=== PATIENT | male | born 1955 | race Caucasian/White ===

== ENCOUNTER → 2016-07-04 | Outpatient (CLI) | payer BC | LOC: MW.LAB 15:34 | PROVIDERS: ATTEND Internal Medicine | DX: Z51.81 Encounter for therapeutic drug level monitoring (principal); Z79.01 Long term (current) use of anticoagulants | CPT/HCPCS: 36415; 85610 ==

== ENCOUNTER → 2016-08-01 | Outpatient (CLI) | payer BC | END | disposition home or self-care (01) | LOC: MW.LAB 15:42 | PROVIDERS: ATTEND Internal Medicine | DX: Z51.81 Encounter for therapeutic drug level monitoring (principal); Z79.01 Long term (current) use of anticoagulants | CPT/HCPCS: 36415; 85610 ==

== ENCOUNTER → 2016-09-02 | Outpatient (CLI) | payer BC | LOC: MW.LAB 15:23 | PROVIDERS: ATTEND Internal Medicine | DX: Z51.81 Encounter for therapeutic drug level monitoring (principal); Z79.01 Long term (current) use of anticoagulants | CPT/HCPCS: 36415; 85610 ==

== ENCOUNTER 2017-12-16 15:36 | Emergency (ER) | payer BC ==
[2017-12-16 15:40] VITALS: BP 158/83
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
[2017-12-16 16:29] LABS: CHLORIDE,CL 102 mmol/L (98-107); SODIUM,NA 138 mmol/L (136-148)
--- NOTE | 2017-12-16 16:31 | CT ---
EXAMINATION: Non contrast CT head and facial bones. Coronal and sagittal reformats. HISTORY: Pain FINDINGS: Head: No evidence of intra or extra axial hemorrhage, mass, midline shift, hydrocephalus or edema. Mild periventricular and subcortical white matter hypodensities are noted. No hypoattenuation changes in the major vascular territories to suggest acute infarct. No abnormal intracranial calcifications are detected. No evidence of substantial vascular calcificat ions. The paranasal sinuses and mastoid air cells are well aerated without substantial findings. Th e pituitary fossa appears unremarkable. The calvarium is intact. No evidence of skull fracture. Facial bones: The nasal bones are intact. The maxillary and orbital teran are intact. There is disrup tion of the anterior nasal spine, age indeterminate. The mandible is intact. Orbits and globes are sy mmetric. The pterygoid plates and zygomatic arches are intact. Bone mineralization appears normal. Th e temporomandibular joints are symmetric. IMPRESSION: 1. No acute intracranial findings. 2. Mild small vessel ischemic changes. 3. Small fracture of the anterior nasal spine, age indeterminate.
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
[2017-12-16] MEDS ORDERED: Diphtheria,Pertussis(Acell),Tetanus Vaccine 0.5 ML Syringe IM ONE (16:56)
== END 2017-12-16 17:21 | disposition home or self-care (01) ==
LOC: MW.ED 15:36
DX: S02.2XXA Fracture of nasal bones, initial encounter for closed fracture (principal); V89.2XXA Person injured in unspecified motor-vehicle accident, traffic, initial encounter; W22.11XA Striking against or struck by driver side automobile airbag, initial encounter; Z91.02 Food additives allergy status; I10 Essential (primary) hypertension
CPT/HCPCS: 36415; 70450; 70486; 71045; 72125; 80053; 85025; 85610; 90471; 90715; 99285; G0390

== ENCOUNTER 2021-04-19 09:35 | Emergency (ER) | payer BC ==
[2021-04-19] MEDS ORDERED: Oxymetazoline 0.05% Nasal Spray 15 ML Bottle NAS ONE (09:36)
[2021-04-19] MEDS ORDERED: Lidocaine 1% with EPINEPHrine 1:100,000 20 ML MDV INFILT ONE (09:52)
--- NOTE | 2021-04-19 09:53 | EDM.PDOC ---
ED HPI GENERAL MEDICAL PROBLEM - General Chief Complaint: ENT Problem Stated Complaint: BLOODY NOSE Time Seen by Provider: 04/19/21 09:36 Source of Information: Reports: Patient History Limitations: Reports: No Limitations - History of Present Illness INITIAL COMMENTS - FREE TEXT/NARRATIVE: 65-year-old male past medical history anticoagulant use due to prior history of DVT/PE and factor V Leiden deficiency presents for epistaxis. Patient states that this is happened to him a few times in the past with last episode roughly 8 years ago. He states that he woke up this morning with bleeding from the right nare. It did not stop with direct pressure. He notes that he has been outside in the cold, dry air. He denies any trauma to the area. - Related Data Allergies Allergy/AdvReac Type Severity Reaction Status Date / Time tee flavor Allergy Vomiting Verified 04/19/21 09:44 Home Meds: Home Meds Furosemide [Lasix] 1 tab PO BID PRN 07/25/14 [History] Acetaminophen/HYDROcodone [[place] 325-5 MG] 1 tab PO Q4H PRN #10 tablet 12/16/17 [Rx] Olmesartan/Hydrochlorothiazide [Benicar HCT 40-25 MG] 1 tab PO DAILY 12/16/17 [History] Warfarin [Coumadin] 13 mg PO DAILY 12/16/17 [History] Past Medical History HEENT History: Reports: None Cardiovascular History: Reports: Blood Clots/VTE/DVT, Hypertension Respiratory History: Reports: Pneumonia, Recurrent, Other (See Below) Other Respiratory History: lower right lung surgery Gastrointestinal History: Reports: None, Other (See Below) Other Gastrointestinal History: obstructed bowel Genitourinary History: Reports: None, Other (See Below) Other Genitourinary History: pt state "drinkers liver" Musculoskeletal History: Reports: None Neurological History: Reports: None Psychiatric History: Reports: None Endocrine/Metabolic History: Reports: None Hematologic History: Reports: None Oncologic (Cancer) History: Reports: None Dermatologic History: Reports: None - Infectious Disease History Infectious Disease History: Reports: Chicken Pox, Measles, Mumps - Past Surgical History Respiratory Surgical History: Reports: Lung Resection Social & Family History - Family History Family Medical History: No Pertinent Family History - Caffeine Use Caffeine Use: Reports: None ED ROS GENERAL - Review of Systems Review Of Systems: Comprehensive ROS is negative, except as noted in HPI. ED EXAM, GENERAL - Physical Exam Exam: See Below Exam Limited By: No Limitations General Appearance: Alert, WD/WN, No Apparent Distress Ears: Hearing Grossly Normal Nose: Other (active bleeding from R nare, blood in oropharynx) Throat/Mouth: Normal Inspection Head: Atraumatic, Normocephalic Respiratory/Chest: No Respiratory Distress, No Accessory Muscle Use Cardiovascular: Normal Peripheral Pulses Extremities: Normal Inspection Neurological: Alert, Normal Cognition, Normal Gait Psychiatric: Normal Affect, Normal Mood Skin Exam: Warm, Dry, Intact, Normal Color Course - Vital Signs Last Recorded V/S: Last Vital Signs Temp 97.8 F 04/19/21 09:45 Pulse 90 04/19/21 09:45 Resp 17 04/19/21 09:45 BP 217/101 H 04/19/21 09:45 Pulse Ox 96 04/19/21 09:45 - Orders/Labs/Meds Labs: Laboratory Tests 04/19/21 04/19/21 04/19/21 Range/Units 09:55 09:55 09:55 WBC 7.28 (4.0-11.0) K/uL RBC 5.09 (4.50-5.90) M/uL Hgb 15.2 (13.0-17.0) g/dL Hct 46.0 (38.0-50.0) % MCV 90.4 (80.0-98.0) fL MCH 29.9 (27.0-32.0) pg MCHC 33.0 (31.0-37.0) g/dL RDW Std Deviation 42.6 (28.0-62.0) fl RDW Coeff of Jumana 13 (11.0-15.0) % Plt Count 178 (150-400) K/uL MPV 12.00 (7.40-12.00) fL Neut % (Auto) 66.7 (48.0-80.0) % Lymph % (Auto) 21.2 (16.0-40.0) % [place] % (Auto) 8.5 (0.0-15.0) % Eos % (Auto) 3.2 (0.0-7.0) % Baso % (Auto) 0.4 (0.0-1.5) % Neut # (Auto) 4.9 (1.4-5.7) K/uL Lymph # (Auto) 1.5 (0.6-2.4) K/uL [place] # (Auto) 0.6 (0.0-0.8) K/uL Eos # (Auto) 0.2 (0.0-0.7) K/uL Baso # (Auto) 0.0 (0.0-0.1) K/uL Nucleated RBC % 0.0 /100WBC Nucleated RBCs # 0 K/uL INR 2.03 Sodium 140 (136-148) mmol/L Potassium 3.9 (3.5-5.1) mmol/L Chloride 103 (98-107) mmol/L Carbon Dioxide 29.0 (21.0-32.0) mmol/L BUN 18 (7.0-18.0) mg/dL Creatinine 0.9 (0.8-1.3) mg/dL Est Cr Clr Drug Dosing 101.80 mL/min Estimated GFR (MDRD) > 60.0 ml/min Glucose 98 (74-106) mg/dL Calcium 8.8 (8.5-10.1) mg/dL Meds: Medications Discontinued Medications Generic Name Dose Route Start Last Admin Trade Name Freq PRN Reason Stop Dose Admin Lidocaine/Epinephrine 20 ml 04/19/21 09:52 04/19/21 10:24 Lidocaine 1% With Epinephrine 1:100,000 20 Ml Mdv INFILT 04/19/21 09:53 20 ml ONETIME ONE Administration Oxymetazoline HCl 0 ml 04/19/21 09:36 04/19/21 10:21 Oxymetazoline 0.05% Nasal [place] 15 Ml Bottle PASTOR 04/19/21 09:37 3 spray ONETIME ONE Administration Tranexamic Acid 1,000 mg 04/19/21 09:52 04/19/21 10:24 Tranexamic Acid 1,000 Mg/10 Ml Amp TOP 04/19/21 10:01 1,000 mg ONETIME ONE Administration - Re-Assessments/Exams Free Text/Narrative Re-Assessment/Exam: 04/19/21 10:14 We will get basic labs including CBC and INR. Will trial Afrin and direct pressure. If this is unsuccessful will place anterior/posterior Rhino Rocket 04/19/21 10:25 Labs are reassuring, INR is 2.03 which is within patient's target of 2-3. Patient is not anemic. Unfortunately patient did have bleeding after the Afrin and direct pressure. An anterior/posterior Rhino Rocket was placed in the right nare. Bleeding seems to stop, will observe to ensure no breakthrough bleeding. Departure - Departure Time of Disposition: 10:38 Disposition: Home, Self-Care 01 Condition: Good (epistaxis) Clinical Impression: Epistaxis - Discharge Information Instructions: Nosebleed, Adult Forms: ED Department Discharge Additional Instructions: You are seen in the emergency department for epistaxis or nosebleed. You had a nasal tampon or Rhino Rocket placed in your nose. You will need to follow-up with either the ENT doctor or come back to the emergency department within 5 days to have the nasal packing removed. The nasal packing can become very dangerous if it is left in for longer than a week as it can get infected and cause life-threatening infection. Dr. Stephen Brown [facility], [address] [place] [id number] The following information is given to patients seen in the emergency department who are being discharged to home. This information is to outline your options for follow-up care. We provide all patients seen in our emergency department with a follow-up referral. The need for follow-up, as well as the timing and circumstances, are variable depending upon the specifics of your emergency department visit. If you don't have a primary care physician on staff, we will provide you with a referral. We always advise you to contact your personal physician following an emergency department visit to inform them of the circumstance of the visit and for follow-up with them and/or the need for any referrals to a consulting specialist. The emergency department will also refer you to a specialist when appropriate. This referral assures that you have the opportunity for follow-up care with a specialist. All of these measure are taken in an effort to provide you with optimal care, which includes your follow-up. Under all circumstances we always encourage you to contact your private physician who remains a resource for coordinating your care. When calling for follow-up care, please make the office aware that this follow-up is from your recent emergency room visit. If for any reason you are refused follow-up, please contact the [facility] Emergency Department at and asked to speak to the emergency department charge nurse. Please follow up with your primary care physician. If you do not have a primary care physician, see below: [facility] [address] [place] [id number] [facility] [address] [place], [place] [id number] [facility] [address], [place] [address] Sepsis Event Note (ED) - Focused Exam Vital Signs: Vital Signs Temp Pulse Resp BP Pulse Ox 04/19/21 09:45 97.8 F 90 17 217/101 H 96
[2021-04-19 09:56] VITALS: BP 217/101; PULSE 90
[2021-04-19 10:23] LABS: BLOOD UREA NITROGEN,BUN 18 mg/dL (7.0-18.0); CHLORIDE,CL 103 mmol/L (98-107); GLUCOSE RANDOM 98 mg/dL (74-106); POTASSIUM,K 3.9 mmol/L (3.5-5.1); SODIUM,NA 140 mmol/L (136-148)
== END 2021-04-19 11:01 | disposition home or self-care (01) ==
LOC: MW.ED 09:35
DX: R04.0 Epistaxis (principal); I10 Essential (primary) hypertension; Z91.048 Other nonmedicinal substance allergy status; Z79.01 Long term (current) use of anticoagulants
CPT/HCPCS: 30905; 36415; 80048; 85025; 85610; 99283-25

== ENCOUNTER 2021-04-21 23:06 | Emergency (ER) | payer BC ==
--- NOTE | 2021-04-21 23:24 | EDM.PDOC ---
ED HPI GENERAL MEDICAL PROBLEM - General Chief Complaint: ENT Problem Stated Complaint: NOSE BLEEDING Time Seen by Provider: 04/21/21 23:06 Source of Information: Reports: Patient History Limitations: Reports: No Limitations - History of Present Illness INITIAL COMMENTS - FREE TEXT/NARRATIVE: 65-year-old male on warfarin presents for epistaxis. Patient was seen 2 days ago for similar. At that time he did have a Rhino Rocket placed to the right nare. Patient notes that this evening after laying down he began to feel blood dripping down the back of his throat. He also had a very small amount of blood drip from the right nare. No bleeding from the left side. No difficulty breathing. Patient has not been able to get in with the ENT doctor for comprehensive assessment. - Related Data Allergies Allergy/AdvReac Type Severity Reaction Status Date / Time tee flavor Allergy Vomiting Verified 04/21/21 23:17 Home Meds: Home Meds Furosemide [Lasix] 1 tab PO BID PRN 07/25/14 [History] Acetaminophen/HYDROcodone [Harned 325-5 MG] 1 tab PO Q4H PRN #10 tablet 12/16/17 [Rx] Olmesartan/Hydrochlorothiazide [Benicar HCT 40-25 MG] 1 tab PO DAILY 12/16/17 [History] Warfarin [Coumadin] 13 mg PO DAILY 12/16/17 [History] Past Medical History HEENT History: Reports: None Cardiovascular History: Reports: Blood Clots/VTE/DVT, Hypertension Respiratory History: Reports: Pneumonia, Recurrent, Other (See Below) Other Respiratory History: lower right lung surgery Gastrointestinal History: Reports: None, Other (See Below) Other Gastrointestinal History: obstructed bowel Genitourinary History: Reports: None, Other (See Below) Other Genitourinary History: pt state "drinkers liver" Musculoskeletal History: Reports: None Neurological History: Reports: None Psychiatric History: Reports: None Endocrine/Metabolic History: Reports: None Hematologic History: Reports: None Oncologic (Cancer) History: Reports: None Dermatologic History: Reports: None - Infectious Disease History Infectious Disease History: Reports: Chicken Pox, Measles, Mumps - Past Surgical History Respiratory Surgical History: Reports: Lung Resection GI Surgical History: Reports: Appendectomy Social & Family History - Family History Family Medical History: No Pertinent Family History - Tobacco Use Second Hand Smoke Exposure: Yes - Caffeine Use Caffeine Use: Reports: None - Recreational Drug Use Recreational Drug Use: No ED ROS GENERAL - Review of Systems Review Of Systems: Comprehensive ROS is negative, except as noted in HPI. ED EXAM, GENERAL - Physical Exam Exam: See Below Exam Limited By: No Limitations General Appearance: Alert, WD/WN, No Apparent Distress Ears: Hearing Grossly Normal Nose: Other (rhino rocket placed in R nare, small amount of fresh red blood around nare) Throat/Mouth: Normal Voice, No Airway Compromise, Other (small amount of blood in oropharynx) Head: Atraumatic, Normocephalic Respiratory/Chest: No Respiratory Distress, Lungs Clear, Normal Breath Sounds, No Accessory Muscle Use Cardiovascular: Normal Peripheral Pulses, Regular Rate, Rhythm Extremities: Normal Inspection Neurological: Alert, Normal Cognition, Normal Gait Psychiatric: Normal Affect, Normal Mood Skin Exam: Warm, Dry, Intact, Normal Color Course - Vital Signs Last Recorded V/S: Last Vital Signs Temp 98.6 F 04/21/21 23:14 Pulse 87 04/21/21 23:14 Resp 20 04/21/21 23:14 BP 171/99 H 04/21/21 23:14 Pulse Ox 96 04/21/21 23:14 - Re-Assessments/Exams Free Text/Narrative Re-Assessment/Exam: 04/21/21 23:23 We will trial reinflating the Rhino Rocket. If this is unsuccessful we will remove the Rhino Rocket in place a new one. 04/21/21 23:58 Patient is not having breakthrough bleeding after increasing the pressure of the Rhino Rocket. The Rhino Rocket was noted to be quite deflated although it is holding air well. Recommend follow-up with ENT Departure - Departure Time of Disposition: 23:59 Disposition: Home, Self-Care 01 Condition: Good Clinical Impression: Epistaxis - Discharge Information Instructions: Nosebleed, Adult Forms: ED Department Discharge Additional Instructions: You are seen in the emergency department for breakthrough bleeding despite having a nasal packing on. We inflated the nasal packing and the bleeding stopped. I would really like you to follow-up with the ENT doctor to have this removed and have an ENT evaluation. Dr. Stephen Brown [facility], [address] [place] [address], [place] [id number] The following information is given to patients seen in the emergency department who are being discharged to home. This information is to outline your options for follow-up care. We provide all patients seen in our emergency department with a follow-up referral. The need for follow-up, as well as the timing and circumstances, are variable depending upon the specifics of your emergency department visit. If you don't have a primary care physician on staff, we will provide you with a referral. We always advise you to contact your personal physician following an emergency department visit to inform them of the circumstance of the visit and for follow-up with them and/or the need for any referrals to a consulting spec ialist. The emergency department will also refer you to a specialist when appropriate. This referral assures that you have the opportunity for follow-up care with a specialist. All of these measure are taken in an effort to provide you with optimal care, which includes your follow-up. Under all circumstances we always encourage you to contact your private physician who remains a resource for coordinating your care. When calling for follow-up care, please make the office aware that this follow-up is from your recent emergency room visit. If for any reason you are refused follow-up, please contact the [facility] Emergency Department at and asked to speak to the emergency department charge nurse. Please follow up with your primary care physician. If you do not have a primary care physician, see below: [facility] [address] [place] [id number] [facility] [address] [place] [id number] [facility] [address] [place] [id number] Sepsis Event Note (ED) - Evaluation Sepsis Screening Result: No Definite Risk - Focused Exam Vital Signs: Vital Signs Temp Pulse Resp BP Pulse Ox 04/21/21 23:14 98.6 F 87 20 171/99 H 96
[2021-04-22 00:50] VITALS: BP 168/85; PULSE 86
== END 2021-04-22 00:22 | disposition home or self-care (01) ==
LOC: MW.ED 23:06
DX: R04.0 Epistaxis (principal); I10 Essential (primary) hypertension; Z77.22 Contact with and (suspected) exposure to environmental tobacco smoke (acute) (chronic); Z91.018 Allergy to other foods; Z79.01 Long term (current) use of anticoagulants; Z79.899 Other long term (current) drug therapy
CPT/HCPCS: 30903; 99283-25

== ENCOUNTER 2022-01-08 08:09 | Emergency (ER) | payer BC ==
[2022-01-08] MEDS ORDERED: Lidocaine 2% Viscous Solution 15 ML UD PO ONE (08:39)
[2022-01-08] MEDS ORDERED: Cephalexin 500 MG Cap PO ONE (09:16)
[2022-01-08 10:07] LABS: CARBON DIOXIDE,CO2 28.1 mmol/L (21.0-32.0); POTASSIUM,K 3.8 mmol/L (3.5-5.1)
[2022-01-08 11:41] VITALS: BP 141/89; PULSE 71
== END 2022-01-08 11:41 | disposition home or self-care (01) ==
LOC: MW.ED 08:09
DX: R04.0 Epistaxis (principal); D68.2 Hereditary deficiency of other clotting factors; I10 Essential (primary) hypertension; Z91.018 Allergy to other foods; Z79.899 Other long term (current) drug therapy; Z79.01 Long term (current) use of anticoagulants; Z90.49 Acquired absence of other specified parts of digestive tract
CPT/HCPCS: 30901; 36415; 80053; 85025; 85610; 99283; A9270

== ENCOUNTER 2022-01-14 09:00 | Emergency (ER) | payer BC | END 2022-01-14 10:47 | disposition home or self-care (01) | LOC: MW.ED 09:00 | DX: Z48.00 Encounter for change or removal of nonsurgical wound dressing (principal) | CPT/HCPCS: 99283 ==

== ENCOUNTER 2022-04-25 15:14 | Emergency (ER) | payer BC ==
[2022-04-25 16:20] VITALS: BP 177/91; PULSE 67
[2022-04-25 19:22] LABS: CARBON DIOXIDE,CO2 27.1 mmol/L (21.0-32.0); POTASSIUM,K 4.2 mmol/L (3.5-5.1)
== END 2022-04-25 20:04 | disposition home or self-care (01) ==
LOC: MW.ED 15:14
DX: K62.5 Hemorrhage of anus and rectum (principal); Z79.01 Long term (current) use of anticoagulants; I10 Essential (primary) hypertension; Z91.018 Allergy to other foods
CPT/HCPCS: 36415; 80053; 85025; 85610; 99283

== ENCOUNTER 2022-05-09 22:31 | Emergency (ER) | payer BC ==
[2022-05-09] MEDS ORDERED: Lactated Ringers 1,000 ML IV STA (22:59)
[2022-05-09 23:08] LABS: CARBON DIOXIDE,CO2 27.3 mmol/L (21.0-32.0); POTASSIUM,K 4.1 mmol/L (3.5-5.1)
[2022-05-10 02:19] VITALS: BP 161/91; PULSE 69
== END 2022-05-10 02:35 | disposition home or self-care (01) ==
LOC: MW.ED 22:31
DX: T59.811A Toxic effect of smoke, accidental (unintentional), initial encounter (principal); R09.02 Hypoxemia; Z91.048 Other nonmedicinal substance allergy status; Z79.01 Long term (current) use of anticoagulants
CPT/HCPCS: 36415; 71045; 80053; 82375; 83605; 85025; 85610; 93005; 99285; J7120

== ENCOUNTER 2023-02-17 15:29 | Emergency (ER) | payer BC ==
[2023-02-17 16:32] LABS: BASOPHILS ABSOLUTE AUTO 0.07 K/uL (0.00-0.20); BASOPHILS PERCENT AUTO 1.1 % (0.0-1.0); EOSINOPHILS ABSOLUTE AUTO 0.12 K/uL (0.00-0.45); EOSINOPHILS PERCENT AUTO 1.8 % (0.0-6.0); HEMATOCRIT 44.4 % (42.0-52.0); IMMATURE GRAN ABSOLUTE AUTO 0.03 K/uL (0.00-0.05); IMMATURE GRAN PERCENT AUTO 0.5 % (0.0-0.4); LYMPHOCYTES PERCENT AUTO 4.6 % (24.0-44.0); MEAN CORPUSCULAR HEMOGLOBIN 30.3 pg (28.0-32.0); MEAN CORPUSCULAR HGB CONC 33.8 g/dL (32.0-36.0); MEAN CORPUSCULAR VOLUME 89.7 fL (83.0-99.0); MEAN PLATELET VOLUME 11.3 fL (9.4-12.4); MONOCYTES ABSOLUTE AUTO 1.05 K/uL (0.00-0.80); NEUTROPHILS ABSOLUTE AUTO 5.01 K/uL (1.80-7.70); PLATELET COUNT,PLT 148 K/uL (150-400); RED BLOOD CELL COUNT 4.95 M/uL (4.52-5.90); WHITE BLOOD CELL COUNT,WBC 6.58 K/uL (3.9-11.3)
[2023-02-17 16:48] LABS: INR 1.17 (0.86-1.11)
[2023-02-17 16:59] LABS: A/G RATIO 0.8 (0.9-1.6); ALBUMIN 3.4 g/dL (3.4-5.0); BILIRUBIN TOTAL 0.4 mg/dL (0.2-1.0); CALCIUM 8.7 mg/dL (8.5-10.1); EST CRCL DRUG DOSING (CG) 91.58 mL/min; POTASSIUM,K 3.7 mmol/L (3.5-5.1); PROTEIN TOTAL,TP 7.6 g/dL (6.4-8.2)
[2023-02-17 17:03] LABS: CORONAVIRUS COVID-19 NAA NEGATIVE (NEGATIVE); INFLUENZA A NAA NEGATIVE (NEGATIVE); INFLUENZA B NAA NEGATIVE (NEGATIVE); RESPIRATORY SYNCYTIAL VIR NAA NEGATIVE (NEGATIVE)
[2023-02-17] MEDS ORDERED: Acetaminophen 500 MG Tab PO ONE (18:29)
[2023-02-17] MEDS ORDERED: Iopamidol 755 MG/ML 500 ML Multipack Bottle IVPUSH STA (18:44)
[2023-02-17 20:22] VITALS: BP 116/95; PULSE 96
== END 2023-02-17 20:13 | disposition home or self-care (01) ==
LOC: MW.ED 15:29
DX: J40 Bronchitis, not specified as acute or chronic (principal); I10 Essential (primary) hypertension; Z86.2 Personal history of diseases of the blood and blood-forming organs and certain disorders involving the immune mechanism; Z91.018 Allergy to other foods; Z79.01 Long term (current) use of anticoagulants; Z79.899 Other long term (current) drug therapy; Z20.822 Contact with and (suspected) exposure to COVID-19
CPT/HCPCS: 0241U; 36415; 71045; 71275; 80053; 84484; 85025; 85610; 93005; 99285; A9270; Q9967; 93010; 99284

== ENCOUNTER 2023-11-24 13:43 | Emergency (ER) | payer SELFPAY ==
[2023-11-24 15:05] LABS: BASOPHILS ABSOLUTE AUTO 0.06 K/uL (0.00-0.20); BASOPHILS PERCENT AUTO 0.8 % (0.0-1.0); EOSINOPHILS ABSOLUTE AUTO 0.28 K/uL (0.00-0.45); EOSINOPHILS PERCENT AUTO 3.8 % (0.0-6.0); HEMATOCRIT 44.9 % (42.0-52.0); HEMOGLOBIN 14.8 g/dL (14.0-18.0); IMMATURE GRAN ABSOLUTE AUTO 0.03 K/uL (0.00-0.05); IMMATURE GRAN PERCENT AUTO 0.4 % (0.0-0.4); LYMPHOCYTES ABSOLUTE AUTO 2.01 K/uL (1.00-4.80); LYMPHOCYTES PERCENT AUTO 27.6 % (24.0-44.0); MEAN CORPUSCULAR HEMOGLOBIN 30.4 pg (28.0-32.0); MEAN CORPUSCULAR VOLUME 92.2 fL (83.0-99.0); MEAN PLATELET VOLUME 11.5 fL (9.4-12.4); MONOCYTES ABSOLUTE AUTO 0.87 K/uL (0.00-0.80); MONOCYTES PERCENT AUTO 11.9 % (0.0-8.0); NEUTROPHILS ABSOLUTE AUTO 4.04 K/uL (1.80-7.70); NEUTROPHILS PERCENT AUTO 55.5 % (41.0-71.0); PLATELET COUNT,PLT 155 K/uL (150-400); RED BLOOD CELL COUNT 4.87 M/uL (4.52-5.90); WHITE BLOOD CELL COUNT,WBC 7.29 K/uL (3.9-11.3)
[2023-11-24 15:21] LABS: INR 1.06 (0.86-1.11)
[2023-11-24 15:50] LABS: A/G RATIO 0.9 (0.9-1.6); ALBUMIN 3.5 g/dL (3.4-5.0); BILIRUBIN TOTAL 0.3 mg/dL (0.2-1.0); CALCIUM 8.9 mg/dL (8.5-10.1); CREATININE 0.9 mg/dL (0.8-1.3); EST CRCL DRUG DOSING (CG) 102.97 mL/min; POTASSIUM,K 4.1 mmol/L (3.5-5.1); PROTEIN TOTAL,TP 7.5 g/dL (6.4-8.2)
[2023-11-24 18:14] VITALS: BP 144/96; PULSE 59
== END 2023-11-24 17:15 | disposition home or self-care (01) ==
LOC: MW.ED 13:43
DX: R07.89 Other chest pain (principal); M62.838 Other muscle spasm; I10 Essential (primary) hypertension; Z86.2 Personal history of diseases of the blood and blood-forming organs and certain disorders involving the immune mechanism; Z79.01 Long term (current) use of anticoagulants; Z90.49 Acquired absence of other specified parts of digestive tract; Z79.899 Other long term (current) drug therapy; Z91.018 Allergy to other foods; X50.0XXA Overexertion from strenuous movement or load, initial encounter; Y99.0 Civilian activity done for income or pay
CPT/HCPCS: 36415; 71046; 71046-26; 80053; 83690; 83880; 84484; 85025; 85610; 93005; 99285